=== PATIENT | male | born 1980 | race Hispanic/Latino ===

== ENCOUNTER 2021-10-30 13:58 | Emergency (ER) | payer SELFPAY ==
[~2021-10-30] VITALS: Ht 172.7 cm; Wt 78.2 kg
[2021-10-30] MEDS ORDERED: MOTRIN800 MG PO (16:03)
[2021-10-30 16:15] VITALS: BP 117/77
== END 2021-10-30 16:15 | disposition home or self-care (01) | DRG 563 ==
LOC: ED 13:58 → EDBD 13:58 → ED 15:45
DX: S43.402A Unspecified sprain of left shoulder joint, initial encounter (principal); X50.3XXA Overexertion from repetitive movements, initial encounter; Y93.89 Activity, other specified; Y92.74 Orchard as the place of occurrence of the external cause; Y99.0 Civilian activity done for income or pay